=== PATIENT | female | born 1955 | race Asian ===

== ENCOUNTER 2018-10-22 08:34 | Day surgery (SDC) | payer OTHER ==
[~2018-10-22] VITALS: Ht 149.9 cm; Wt 56.7 kg
[2018-10-22] MEDS ORDERED: METHYLENE BLUE 0.5% (5MG/ML) 10 ML AMP (PROVAYBLUE)(Q9968 PER 1MG) As Ordered ONE (11:40)
[2018-10-22] MEDS ORDERED: BACITRACIN OINT 30GM As Ordered ONE (11:40)
[2018-10-22] MEDS ORDERED: LIDOCAINE W/EPINEPHRINE 1% 20ML VIAL As Ordered ONE (11:41)
[2018-10-22] MEDS ORDERED: EPINEPHrine 1MG/ML INJ 30ML MD-VIAL As Ordered ONE (11:41)
[2018-10-22] MEDS ORDERED: LIDOCAINE 2% INJ 100 MG/5 ML SDV (FOR ANES.) As Ordered ONE (11:47)
[2018-10-22] MEDS ORDERED: PROPOFOL 200 MG/20 ML VIAL As Ordered ONE (11:47)
[2018-10-22] MEDS ORDERED: ONDANSETRON 4MG/2ML VIAL (J2405) As Ordered ONE (11:48)
[2018-10-22] MEDS ORDERED: SUGAMMADEX SODIUM 500 MG/5 ML VIAL (BRIDION) As Ordered ONE (11:48)
[2018-10-22] MEDS ORDERED: MIDAZOLAM INJ 2 MG/2 ML VIAL (J2250) As Ordered ONE (11:48)
[2018-10-22] MEDS ORDERED: ROCURONIUM BROMIDE 50 MG/5 ML VIAL As Ordered ONE (11:48)
[2018-10-22] MEDS ORDERED: dexameTHASONE 4 MG/ML 1ML VIAL (J1100) As Ordered ONE (11:48)
[2018-10-22] MEDS ORDERED: fentaNYL 100 MCG/2 ML INJECTION (J3010) As Ordered ONE (11:49)
[2018-10-22] MEDS ORDERED: LR 1,000 ML IV SCH ×2 (13:15→13:30)
[2018-10-22] MEDS ORDERED: ONDANSETRON 4MG/2ML VIAL (J2405) IV PRN (13:15)
[2018-10-22] MEDS ORDERED: fentaNYL 100 MCG/2 ML INJECTION (J3010) IV PRN (13:15)
[2018-10-22] MEDS ORDERED: PERCOCET 5MG/325MG TAB PO PRN (13:15)
[2018-10-22] MEDS ORDERED: METOCLOPRAMIDE INJ 10MG/2ML VIAL (J2765) IV PRN (13:15)
[2018-10-22 15:00] VITALS: BP 144/67
--- NOTE | 2018-10-23 12:32 | RO ---
DATE OF PROCEDURE: 10/22/2018 PREPROCEDURE DIAGNOSIS: Foreign body nose. POSTPROCEDURE DIAGNOSIS: Foreign body nose. PROCEDURE: Removal of foreign body nose. SURGEON: Wong Bates MD DIAL BRUSHER: ANESTHESIA: DESCRIPTION OF PROCEDURE: Under general anesthesia with the patient intubated, the patient was draped in the usual manner. The foreign body was protruding from the right nasal vestibule. With traction on the prosthesis, I pulled it out without difficulty. The patient tolerated the procedure well. Patient was extubated and transferred to the recovery room in excellent condition. No blood loss.
== END 2018-10-22 15:10 | disposition home or self-care (01) ==
LOC: M SDC 08:34
PROVIDERS: ATTEND Otolaryngology
DX: T17.1XXA Foreign body in nostril, initial encounter (principal); Y92.019 Unspecified place in single-family (private) house as the place of occurrence of the external cause
CPT/HCPCS: 30310; 88300; J1100; J2250; J2405; J3010; Q9968

== ENCOUNTER → 2019-12-22 | Outpatient (REF) | payer OTHER | LOC: M LAB REF 16:26 | PROVIDERS: ATTEND Physician Assistant | DX: N39.0 Urinary tract infection, site not specified (principal) ==

== ENCOUNTER 2022-09-16 12:05 | Emergency (ER) | payer MEDICARE, OTHER ==
[~2022-09-16] VITALS: Ht 152.4 cm; Wt 55.0 kg
[2022-09-16] MEDS ORDERED: LABETALOL 100MG/20ML VIAL IV STA (12:56)
[2022-09-16 13:02] LABS: HEMATOCRIT 44.5 % (36.0-47.0); HEMOGLOBIN 14.6 g/dl (12.0-15.5); MEAN CORPUSCULAR HEMOGLOBIN 29.4 pg (27.0-33.0); MEAN CORPUSCULAR HGB CONC 32.8 g/dl (32.0-36.5); MEAN CORPUSCULAR VOLUME 89.5 fl (80.0-96.0); PLATELET COUNT, AUTOMATED 185 10^3/uL (150-450); RED BLOOD COUNT 4.97 10^6/uL (4.00-5.40); WHITE BLOOD COUNT 5.3 10^3/uL (4.0-10.0)
[2022-09-16 13:17] VITALS: BP 185/86
[2022-09-16 13:32] LABS: ALBUMIN 4.3 G/DL (3.2-5.2); ALKALINE PHOSPHATASE 66 U/L (46-116); ALT/SGPT 26 U/L (7.0-40); AST/SGOT 29 U/L (<34); BILIRUBIN,TOTAL 0.5 MG/DL (0.3-1.2); BLOOD UREA NITROGEN 13 MG/DL (9-23); CALCIUM LEVEL 9.3 MG/DL (8.3-10.6); CARBON DIOXIDE LEVEL 28 MMOL/L (20-31); CHLORIDE LEVEL 105 MMOL/L (98-107); CREATININE FOR GFR 0.66 MG/DL (0.55-1.30); GLOMERULAR FILTRATION RATE > 60.0 (>45); GLUCOSE, FASTING 91 MG/DL (74-106); POTASSIUM SERUM 3.5 MMOL/L (3.5-5.1); SODIUM LEVEL 139 MMOL/L (136-145); TOTAL PROTEIN 8.4 G/DL (5.7-8.2)
[2022-09-16 13:34] LABS: INR 0.86; PROTHROMBIN TIME 11.9 SECONDS (12.5-14.5)
[2022-09-16 13:34] LABS: FREE T4 1.03 NG/DL (0.89-1.76); THYROID STIMULATING HORMONE 1.149 uIU/ML (0.55-4.78)
[2022-09-16 13:35] LABS: PARTIAL THROMBOPLASTIN TIME 34.1 SECONDS (24.8-34.2)
[2022-09-16 13:40] LABS: ATYPICAL LYMPH 1 % (0-5); BASOPHILS 2 % (0-1); LYMPHOCYTES 53 % (16-44); MONOCYTES 9 % (0-5); NEUTROPHILS 32 % (28-66); PLATELET ESTIMATE NORMAL (NORMAL)
[2022-09-16 13:57] LABS: RSV AMPLIFICATION NEGATIVE (NEGATIVE)
[2022-09-16] MEDS ORDERED: METO1TAB87 PO (14:14)
[2022-09-16 14:45] VITALS: BP 143/70
== END 2022-09-16 15:02 | disposition left against medical advice (07) ==
LOC: M ED 12:05
DX: I10 Essential (primary) hypertension (principal); Z88.5 Allergy status to narcotic agent; Z88.6 Allergy status to analgesic agent

== ENCOUNTER 2022-09-24 13:07 | Observation (INO) | payer MEDICARE ==
[~2022-09-24] VITALS: Ht 162.6 cm; Wt 54.6 kg
[~2022-09-24 13:07] MED LIST: METO1TAB87 PO
[2022-09-24] MEDS ORDERED: LABETALOL 100MG/20ML VIAL IV STA (15:31)
[2022-09-24 15:58] LABS: BASO # 0.1 10^3/uL (0.0-0.2); BASO % 0.8 % (0.0-1.0); EOS # 0.1 10^3/uL (0.0-0.5); EOS % 1.5 % (0.0-3.0); HEMATOCRIT 45.1 % (36.0-47.0); HEMOGLOBIN 14.7 g/dl (12.0-15.5); LYMPH # 1.7 10^3/uL (1.5-5.0); LYMPH % 28.8 % (24.0-44.0); MEAN CORPUSCULAR HEMOGLOBIN 29.2 pg (27.0-33.0); MEAN CORPUSCULAR HGB CONC 32.6 g/dl (32.0-36.5); MEAN CORPUSCULAR VOLUME 89.7 fl (80.0-96.0); MONO # 0.4 10^3/uL (0.0-0.8); MONO % 6.8 % (2.0-8.0); NEUTROPHILS # 3.7 10^3/uL (1.5-8.5); NEUTROPHILS % 61.9 % (36.0-66.0); PLATELET COUNT, AUTOMATED 166 10^3/uL (150-450); RED BLOOD COUNT 5.03 10^6/uL (4.00-5.40)
[2022-09-24] MEDS ORDERED: ISOVUE-370 76% 100ML VIAL As Ordered ONE (16:00)
[2022-09-24 16:10] LABS: INR 0.89; PARTIAL THROMBOPLASTIN TIME 33.7 SECONDS (24.8-34.2); PROTHROMBIN TIME 12.2 SECONDS (12.5-14.5)
[2022-09-24 16:15] LABS: ERYTHROCYTE SEDIMENTATION RATE 22 mm/hr (0-30)
[2022-09-24 16:23] LABS: CPK CREATINE PHOSPHOKINASE 105 U/L (34-145); MB/CK RELATIVE INDEX 0.95 (< OR =4)
[2022-09-24 16:25] LABS: FREE T4 1.03 NG/DL (0.89-1.76)
[2022-09-24 16:26] LABS: THYROID STIMULATING HORMONE 1.485 uIU/ML (0.55-4.78)
[2022-09-24 17:25] LABS: CK-MB VALUE MASS < 1.0 NG/ML (<3.6)
[2022-09-24 17:26] LABS: CPK CREATINE PHOSPHOKINASE 92 U/L (34-145); MB/CK RELATIVE INDEX 1.08 (< OR =4)
[2022-09-24] MEDS ORDERED: METOCLOPRAMIDE INJ 10MG/2ML VIAL IV ONE (17:45)
[2022-09-24] MEDS ORDERED: KETOROLAC 30 MG/ML 1ML VIAL IV ONE (17:45)
[2022-09-24] MEDS ORDERED: hydrALAZINE 20MG/ML 1ML VIAL IV ONE (17:45)
[2022-09-24] MEDS ORDERED: NS 1,000 ML IV ONE (17:45)
[2022-09-24 17:55] LABS: RSV AMPLIFICATION NEGATIVE (NEGATIVE)
[2022-09-24] MEDS ORDERED: MAALOX 30 ML SUSP *UDC PO PRN (18:20)
[2022-09-24] MEDS ORDERED: MOM 30ML SUSPENSION UDC PO PRN (18:20)
[2022-09-24] MEDS ORDERED: ACETAMINOPHEN TAB 650MG DOSE (2X325MG) PO PRN (18:20)
[2022-09-24] MEDS ORDERED: GARL200T2 PO (18:47)
[2022-09-24] MEDS ORDERED: METO1TAB87 PO (18:47)
[2022-09-24] MEDS ORDERED: VITA100093 PO (18:47)
[2022-09-24] MEDS ORDERED: VITA-243 PO (18:47)
[2022-09-24] MEDS ORDERED: HOME MED LIST COMPLETE! XX SCH (18:55)
[2022-09-24 19:04] LABS: CHOLESTEROL LEVEL 243 MG/DL (<200); CHOLESTEROL RISK RATIO 2.85 (<5); HDL CHOLESTEROL 85.2 MG/DL (>40); LDL CHOLESTEROL 144.8 MG/DL (<100); NON-HDL-C 157.8 MG/DL; TRIGLYCERIDES LEVEL 65 MG/DL (<150)
[2022-09-24] MEDS ORDERED: CARVedilol 12.5 MG TAB PO SCH (21:00)
[2022-09-24 21:40] VITALS: BP 178/80
[2022-09-24] MEDS: DOCUSATE SODIUM 100MG CAPSULE PO SCH (21:52)
[2022-09-25 00:19] VITALS: BP 96/50
[2022-09-25 04:40] VITALS: BP 102/52
[2022-09-25] MEDS: hydrALAZINE 20MG/ML 1ML VIAL IV SCH ×2 (04:56)
[2022-09-25 06:17] LABS: BASO % 0.5 % (0.0-1.0); EOS % 0.5 % (0.0-3.0); HEMATOCRIT 39.3 % (36.0-47.0); HEMOGLOBIN 13.1 g/dl (12.0-15.5); LYMPH # 1.4 10^3/uL (1.5-5.0); LYMPH % 23.2 % (24.0-44.0); MEAN CORPUSCULAR HEMOGLOBIN 29.8 pg (27.0-33.0); MEAN CORPUSCULAR HGB CONC 33.3 g/dl (32.0-36.5); MEAN CORPUSCULAR VOLUME 89.5 fl (80.0-96.0); MONO # 0.3 10^3/uL (0.0-0.8); MONO % 4.3 % (2.0-8.0); NEUTROPHILS # 4.3 10^3/uL (1.5-8.5); NEUTROPHILS % 71.2 % (36.0-66.0); PLATELET COUNT, AUTOMATED 163 10^3/uL (150-450); RED BLOOD COUNT 4.39 10^6/uL (4.00-5.40)
[2022-09-25 06:49] LABS: BLOOD UREA NITROGEN 15 MG/DL (9-23); CALCIUM LEVEL 8.9 MG/DL (8.3-10.6); CARBON DIOXIDE LEVEL 26 MMOL/L (20-31); CHLORIDE LEVEL 108 MMOL/L (98-107); GLOMERULAR FILTRATION RATE > 60.0 (>45); GLUCOSE, FASTING 102 MG/DL (74-106); MAGNESIUM LEVEL 2.1 MG/DL (1.8-2.4); POTASSIUM SERUM 4.3 MMOL/L (3.5-5.1); SODIUM LEVEL 142 MMOL/L (136-145)
[2022-09-25 08:00] VITALS: BP 139/63
[2022-09-25] MEDS: DOCUSATE SODIUM 100MG CAPSULE PO SCH (08:54)
[2022-09-25] MEDS ORDERED: ENOXAPARIN 40MG/0.4ML SYRINGE (J1650 PER 10MG) SC SCH (09:00)
[2022-09-25] MEDS ORDERED: CARVedilol 12.5 MG TAB PO SCH (09:00)
[2022-09-25 09:04] VITALS: BP 139/63
[2022-09-25] MEDS ORDERED: CARV12.5 PO (10:25)
[2022-09-25 10:27] VITALS: BP 123/63
[2022-09-25] MEDS ORDERED: ATOR40TA75 PO (11:02)
== END 2022-09-25 12:23 | disposition home or self-care (01) ==
LOC: M ED 13:07 → M ED INP 13:08 → M PCU 21:40
PROVIDERS: ADMIT Internal Medicine; ATTEND Internal Medicine
DX: I16.0 Hypertensive urgency (principal); I10 Essential (primary) hypertension; E78.5 Hyperlipidemia, unspecified; Z79.899 Other long term (current) drug therapy; Z88.5 Allergy status to narcotic agent; Z88.8 Allergy status to other drugs, medicaments and biological substances
CPT/HCPCS: 36415; 70450; 70496; 70498; 70551; 80047; 80048; 80061; 82550; 82553; 83735; 84439; 84443; 84484; 85025; 85610; 85652; 85730; 87631; 93005; 93041; 93306; 96374; 96375; 99285; G0378; J0360; J1885; J2765; Q9967

== ENCOUNTER → 2023-02-26 | Outpatient (REF) | payer MEDICARE ==
[~2023-02-26] MED LIST changes: +ATOR40TA75 PO; +CARV12.5 PO; +GARL200T2 PO; +VITA-243 PO; +VITA100093 PO
== END ==
LOC: M SFHCPLAZ 16:22
PROVIDERS: ATTEND Family Medicine
DX: J02.9 Acute pharyngitis, unspecified (principal)

== ENCOUNTER → 2023-07-30 | Outpatient (CLI) | payer MEDICARE, OTHER | LOC: M WHC 11:00 | PROVIDERS: ATTEND Nurse Practitioner Family | DX: Z12.31 Encounter for screening mammogram for malignant neoplasm of breast (principal); R92.323 Mammographic fibroglandular density, bilateral breasts ==

== ENCOUNTER → 2023-07-30 | Outpatient (REF) | payer OTHER, MEDICAID | LOC: M SFHCWAGY 17:16 | PROVIDERS: ATTEND Nurse Practitioner Family | DX: Z12.4 Encounter for screening for malignant neoplasm of cervix (principal) | CPT/HCPCS: 87624; G0123 ==

== ENCOUNTER → 2024-07-19 | Outpatient (CLI) | payer OTHER ==
[2024-07-19 14:04] LABS: APPEARANCE, URINE HAZY (CLEAR); BACTERIA, URINE AUTO NEGATIVE (NEGATIVE); BILIRUBIN, URINE AUTO NEGATIVE (NEGATIVE); BLOOD, URINE BLOOD NEGATIVE (NEGATIVE); COLOR, URINE YELLOW (YELLOW); GLUCOSE, URINE (UA) AUTO NEGATIVE (NEGATIVE); KETONE, URINE AUTO NEGATIVE (NEGATIVE); LEUKOCYTE ESTERASE, URINE AUTO NEGATIVE (NEGATIVE); MUCUS, URINE SMALL (NEGATIVE); NITRITE, URINE AUTO NEGATIVE (NEGATIVE); PROTEIN, URINE AUTO NEGATIVE (NEGATIVE); RBC, URINE AUTO 4 /HPF (0-3); SPECIFIC GRAVITY URINE AUTO 1.015 (1.002-1.035); SQUAMOUS EPITHELIAL CELL UR AU 0 /HPF (0-6); UROBILINOGEN, URINE AUTO 0.2 mg/dL (0.0-2.0); WBC, URINE AUTO 0 /HPF (0-3)
[2024-07-19 14:07] LABS: HEMOGLOBIN 13.4 g/dl (12.0-15.5); MEAN CORPUSCULAR HEMOGLOBIN 28.2 pg (27.0-33.0); MEAN CORPUSCULAR HGB CONC 31.9 g/dl (32.0-36.5); MEAN CORPUSCULAR VOLUME 88.4 fl (80.0-96.0); PLATELET COUNT, AUTOMATED 180 10^3/uL (150-450); RED BLOOD COUNT 4.75 10^6/uL (4.00-5.40)
[2024-07-19 14:25] LABS: HEMOGLOBIN A1c 5.8 % (4.0-6.0)
[2024-07-19 14:36] LABS: ALBUMIN 3.9 G/DL (3.2-5.2); ALKALINE PHOSPHATASE 78 U/L (35-104); ALT/SGPT 24 U/L (7.0-40); AST/SGOT 24 U/L (<34); BILIRUBIN,TOTAL 0.3 MG/DL (0.3-1.2); BLOOD UREA NITROGEN 22 MG/DL (9-23); CALCIUM LEVEL 8.9 MG/DL (8.3-10.6); CARBON DIOXIDE LEVEL 26 MMOL/L (20-31); CHLORIDE LEVEL 106 MMOL/L (98-107); CHOLESTEROL LEVEL 208 MG/DL (<200); CHOLESTEROL RISK RATIO 3.03 (<5); CREATININE FOR GFR 0.61 MG/DL (0.55-1.30); GLOMERULAR FILTRATION RATE > 60.0 (>45); GLUCOSE, FASTING 103 MG/DL (74-106); HDL CHOLESTEROL 68.5 MG/DL (>40); LDL CHOLESTEROL 118.7 MG/DL (<100); NON-HDL-C 139.5 MG/DL; POTASSIUM SERUM 4.4 MMOL/L (3.5-5.1); SODIUM LEVEL 139 MMOL/L (136-145); TOTAL PROTEIN 7.7 G/DL (5.7-8.2); TRIGLYCERIDES LEVEL 104 MG/DL (<150)
[2024-07-19 14:38] LABS: TOTAL 25(OH) VITAMIN D 33.6 NG/ML (20.0-100.0)
== END ==
LOC: M PLALAB 10:13
PROVIDERS: ATTEND Student in an Organized Health Care Education/Training Program
DX: I10 Essential (primary) hypertension (principal); Z13.1 Encounter for screening for diabetes mellitus; Z13.220 Encounter for screening for lipoid disorders; Z12.11 Encounter for screening for malignant neoplasm of colon; Z79.899 Other long term (current) drug therapy

== ENCOUNTER → 2024-08-03 | Outpatient (CLI) | payer OTHER | LOC: M WHC 10:01 | PROVIDERS: ATTEND Nurse Practitioner Family | DX: Z12.31 Encounter for screening mammogram for malignant neoplasm of breast (principal); Z13.820 Encounter for screening for osteoporosis; N95.1 Menopausal and female climacteric states; R92.323 Mammographic fibroglandular density, bilateral breasts; M85.851 Other specified disorders of bone density and structure, right thigh; M85.852 Other specified disorders of bone density and structure, left thigh ==

== ENCOUNTER → 2024-12-16 | Outpatient (CLI) | payer OTHER ==
[2024-12-16 13:18] LABS: PLATELET COUNT, AUTOMATED 190 10^3/uL (150-450)
[2024-12-16 13:49] LABS: ALT/SGPT 40 U/L (7.0-40); AST/SGOT 35 U/L (<34); CALCIUM LEVEL 9.4 MG/DL (8.3-10.6); CARBON DIOXIDE LEVEL 27 MMOL/L (20-31); CHLORIDE LEVEL 103 MMOL/L (98-107); CHOLESTEROL LEVEL 185 MG/DL (<200); CHOLESTEROL RISK RATIO 2.55 (<5); CREATININE FOR GFR 0.72 MG/DL (0.55-1.30); GLOMERULAR FILTRATION RATE > 90.0 (>45); LDL CHOLESTEROL 95.1 MG/DL (<100); NON-HDL-C 112.7 MG/DL; POTASSIUM SERUM 4.3 MMOL/L (3.5-5.1); SODIUM LEVEL 141 MMOL/L (136-145); TRIGLYCERIDES LEVEL 88 MG/DL (<150)
[2024-12-16 13:50] LABS: FREE T4 1.22 NG/DL (0.89-1.76)
[2024-12-16 13:51] LABS: TOTAL 25(OH) VITAMIN D 32.7 NG/ML (20.0-100.0)
[2024-12-16 14:04] LABS: ESTIMATED AVERAGE GLUCOSE 126.0 MG/DL (60-110)
== END ==
LOC: M PLALAB 11:32
DX: Z13.29 Encounter for screening for other suspected endocrine disorder (principal); Z13.1 Encounter for screening for diabetes mellitus; I10 Essential (primary) hypertension; E78.00 Pure hypercholesterolemia, unspecified; N95.1 Menopausal and female climacteric states; Z79.899 Other long term (current) drug therapy